=== PATIENT | male | born 1980 | race American Indian/Alaskan Native ===

== ENCOUNTER 2017-03-02 12:06 | Emergency (ER) | payer MEDICAID, SELFPAY ==
[2017-03-02 12:17] VITALS: RESP 20; O2SAT 98
[2017-03-02] MEDS ORDERED: Sodium Chloride 0.9% 1,000 ML IV SCH (12:30)
--- NOTE | 2017-03-02 12:31 | ED PDOC ---
Syncope/Near Syncope/Dizziness Time Seen by Provider: 03/02/17 12:25 Chief Complaint (Nursing): Dizziness/Lightheaded Chief Complaint (Provider): Dizziness History Per: Patient History/Exam Limitations: no limitations Onset/Duration Of Symptoms: Hrs (4) Current Symptoms Are (Timing): Still Present Current Symptoms: None Activity At Onset Of Symptoms: Exertional Activity Associated Symptoms Preceding Syncopal Episode: Lightheadedness Seizure Or Post-ictal Symptoms: None Possible Causative Factor(s): Other [place] temperature) Additional Complaint(s): 36 yo M w/o PMHx presents to ER c/o lightheadedness and dizziness. Pt states this has been ongoing for a few hours, despite drinking bottled water and eating several fruits & vegetables. He had gone for a long run this morning in the very warm/humid environment outdoors. When the symptoms began, he tried lying down in shade in hopes he could sleep it off. He denies any recent LOC, headstrike, trauma, accidents, falls, fevers/chills, nausea or vomiting. He states that he had been fasting for ada over the last couple of weeks, and that it's possible he hasn't had enough fluid during this time. Otherwise, he denies chest pain, SOB, abdominal pain, or other myalgias. - Symptoms Of CVA Associated Symptoms: Other (above are all negative) Recent Head Trauma: No Past Medical History Vital Signs: Last Vital Signs Temp 98 F 03/02/17 12:15 Pulse 80 03/02/17 12:15 Resp 20 03/02/17 12:15 BP 155/70 H 03/02/17 12:15 Pulse Ox 98 03/02/17 12:15 - Family History Family History: States: No Known Family Hx - Allergies Allergies/Adverse Reactions: Allergies Allergy/AdvReac Type Severity Reaction Status Date / Time No Known Allergies Allergy Verified 07/13/14 17:00 Review of Systems ROS Statement: Except As Marked, All Systems Reviewed And Found Negative (see HPI) Physical Exam - Reviewed Nursing Documentation Reviewed: Yes Vital Signs Reviewed: Yes - Physical Exam Appears: Positive for: Non-toxic, No Acute Distress Head Exam: Positive for: ATRAUMATIC, NORMAL INSPECTION, NORMOCEPHALIC Skin: Positive for: Normal Color, Warm, Dry. Negative for: Diaphoresis Eye Exam: Positive for: Normal appearance, EOMI, PERRL Neck: Positive for: Normal, Painless ROM, Supple Cardiovascular/Chest: Positive for: Regular Rate, Rhythm. Negative for: Edema Respiratory: Positive for: Normal Breath Sounds. Negative for: Rhonchi, Wheezing, Respiratory Distress Pulses-Radial (L): 2+ Pulses-Radial (R): 2+ Gastrointestinal/Abdominal: Positive for: Normal Exam, Soft. Negative for: Tenderness Extremity: Positive for: Normal ROM. Negative for: Pedal Edema, Calf Tenderness Neurologic/Psych: Positive for: Alert, eco industrial development consultant II-XII, Oriented - Laboratory Results Result Diagrams: 03/02/17 13:00 03/02/17 13:00 - ECG O2 Sat by Pulse Oximetry: 98 - Progress ED Course And Treament: 36 yo M w/o PMHx presents to ER c/o lightheadedness and dizziness -CBC -BMP -NS 1L x1 Update 1330: -Labs resulted wnl -Pt feeling much improved Update 1400: -To be discharged w instructions to follow up with PMD in 2-3 days -Strongly advised to remain well hydrated, out of the sun, and not to fast for next couple of days Condition: Re-examined, Improved Disposition - Clinical Impression Clinical Impression: Dizziness, Dehydration - Patient ED Disposition Is Patient to be Admitted: No - Disposition Disposition: Routine/Home Disposition Time: 14:00 Condition: STABLE Additional Instructions: Follow up with PMD in 2-3 days Keep well hydrated, drinking 3 L of water during days of such extreme heat Do not fast for next few days Return to ED if symptoms occur again
[2017-03-02 13:43] LABS: MEAN CORPUSCULAR HEMOGLOBIN 29.5 pg (27.0-31.0); MEAN CORPUSCULAR HGB CONC 32.4 g/dL (33.0-37.0); RED CELL DISTRIBUTION WIDTH 12.8 % (11.5-14.5); WHITE BLOOD COUNT 6.1 K/uL (4.8-10.8)
[2017-03-02 13:44] LABS: BLOOD UREA NITROGEN 21 mg/dl (9-20); CALCIUM 8.9 mg/dL (8.4-10.2); CARBON DIOXIDE 25 mmol/L (22-30); CHLORIDE 103 mmol/L (98-107); GFR AFRICAN-AMERICAN > 60; GLUCOSE,RANDOM 93 mg/dL (75-110); POTASSIUM 4.2 MMOL/L (3.6-5.0); SODIUM 140 mmol/l (132-148)
[2017-03-02 14:42] VITALS: BP 126/78; PULSE 78; TEMP 97.6
== END 2017-03-02 14:42 | disposition home or self-care (01) ==
LOC: H.ER 12:06
DX: R42 Dizziness and giddiness (principal); E86.0 Dehydration

== ENCOUNTER 2017-03-08 22:34 | Observation (INO) | payer MEDICAID ==
[2017-03-08] MEDS ORDERED: Sodium Chloride 0.9% 1,000 ML IV STA (23:01)
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
[2017-03-09 00:05] LABS: BASO % 0.4 % (0.0-2.0); EOS # 0.1 K/uL (0.0-0.7); EOS % 1.1 % (0.0-4.0); HEMATOCRIT 35.5 % (35.0-51.0); LYMPH # 1.1 K/uL (1.0-4.3); LYMPH % 15.9 % (20.0-40.0); MEAN CELL VOLUME 91.1 fl (80.0-94.0); MEAN CORPUSCULAR HEMOGLOBIN 29.5 pg (27.0-31.0); MEAN CORPUSCULAR HGB CONC 32.4 g/dL (33.0-37.0); MEAN PLATELET VOLUME 9.4 fl (7.2-11.7); MONO # 0.7 K/uL (0.0-0.8); MONO % 9.2 % (0.0-10.0); NEUT # 5.3 K/uL (1.8-7.0); NEUT % 73.4 % (50.0-75.0); NRBC % 0.1 % (0.0-0.0); RED CELL DISTRIBUTION WIDTH 12.8 % (11.5-14.5); WHITE BLOOD COUNT 7.2 K/uL (4.8-10.8)
[2017-03-09 00:13] LABS: ALB/GLOB RATIO 1.3 (1.0-2.1); ALKALINE PHOSPHATASE 74 U/L (38-126); ALT/SGPT 70 U/L (21-72); AST/SGOT 110 U/L (17-59); BILIRUBIN,TOTAL 0.4 mg/dl (0.2-1.3); BLOOD UREA NITROGEN 15 mg/dl (9-20); CARBON DIOXIDE 27 mmol/L (22-30); CHLORIDE 104 mmol/L (98-107); GFR AFRICAN-AMERICAN > 60; GLUCOSE,RANDOM 83 mg/dL (75-110); SODIUM 140 mmol/l (132-148)
[2017-03-09] MEDS ORDERED: Sodium Chloride 0.9% 50 ML IV ONE (00:44)
[2017-03-09] MEDS ORDERED: Iohexol 300 100 ML IJ ONE (00:44)
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
[2017-03-09 06:15] VITALS: TEMP 97.6
[2017-03-09 06:56] VITALS: BP 124/67; PULSE 81; RESP 18
[2017-03-09] MEDS ORDERED: Divalproex 500 mg ER (ONCE DAILY formulation) PO SCH (09:00)
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
[2017-03-10 10:51] VITALS: O2SAT 97
== END 2017-03-09 15:45 | disposition left against medical advice (07) ==
LOC: H.ER 22:34 → H.ERHOLD 03-09 05:06 → H.MEDSURG1 03-09 06:53
PROVIDERS: ADMIT Internal Medicine; ATTEND Internal Medicine
DX: S27.321A Contusion of lung, unilateral, initial encounter (principal); Y00.XXXA Assault by blunt object, initial encounter; Y92.9 Unspecified place or not applicable; F31.9 Bipolar disorder, unspecified; G40.909 Epilepsy, unspecified, not intractable, without status epilepticus; Z91.018 Allergy to other foods

== ENCOUNTER 2017-03-09 18:10 | Emergency (ER) | payer MEDICAID ==
[2017-03-09 18:20] VITALS: O2SAT 98
[2017-03-09 18:31] VITALS: BP 120/72; RESP 20; TEMP 96.2
[2017-03-09 19:08] VITALS: PULSE 36
--- NOTE | 2017-03-09 19:35 | ED PDOC ---
HPI: SOB/CHF/COPD Time Seen by Provider: 03/09/17 19:00 Chief Complaint (Nursing): Shortness Of Breath Chief Complaint (Provider): CHEST PAIN History Per: Patient (36 Y/O MALE RECENT ELOPEMENT FROM [address] [place] [address] HERE FOR DISCHARGE PAPERWORK. PATIENT WAS ADMITTED FOR PULMONARY CONTUSION AND SEEN BY DR. MOSQUEDA AND SURGERY FOR EVALUATION OF PULMONARY CONTUSION. PATIENT HAD LEFT WITH IV BUT STATES HE REMOVED IT. NOTES PERSISTENT CHEST PAIN.) Past Medical History Reviewed: Historical Data, Nursing Documentation, Vital Signs Vital Signs: Last Vital Signs Temp 96.2 F L 03/09/17 18:30 Pulse 36 L 03/09/17 18:57 Resp 20 03/09/17 18:30 BP 120/72 03/09/17 18:30 Pulse Ox 98 03/09/17 18:30 - Medical History PMH: Seizures Denies: Chronic Kidney Disease - Family History Family History: States: No Known Family Hx - Home Medications Home Medications: Ambulatory Orders Medication Instructions Recorded Benztropine [Cogentin] 0.5 mg PO DAILY 03/09/17 Divalproex [Depakote ER(ONCE 500 mg PO DAILY 03/09/17 DAILY)] Haloperidol [Haldol] 5 mg PO DAILY 03/09/17 Loratadine [Claritin] 10 mg PO DAILY 03/09/17 Naproxen [Naprosyn Tab] 375 mg PO Q8 PRN #21 tab 03/09/17 - Allergies Allergies/Adverse Reactions: Allergies Allergy/AdvReac Type Severity Reaction Status Date / Time apple Allergy RASH Verified 03/08/17 22:36 chicken derived Allergy RASH Verified 03/08/17 22:36 ORANGE Allergy RASH Verified 03/08/17 22:36 Review of Systems ROS Statement: Except As Marked, All Systems Reviewed And Found Negative Cardiovascular: Positive for: Chest Pain Physical Exam - Reviewed Nursing Documentation Reviewed: Yes Vital Signs Reviewed: Yes - Physical Exam Appears: Positive for: Well, Non-toxic, No Acute Distress Head Exam: Positive for: ATRAUMATIC, NORMAL INSPECTION, NORMOCEPHALIC Skin: Positive for: Normal Color, Warm, DRY Eye Exam: Positive for: EOMI, Normal appearance, PERRL ENT: Positive for: Normal ENT Inspection Neck: Positive for: Normal, Painless ROM Cardiovascular/Chest: Positive for: Regular Rate, Rhythm Respiratory: Positive for: CNT, Normal Breath Sounds Gastrointestinal/Abdominal: Positive for: Normal Exam, Bowel Sounds, Soft Back: Positive for: Normal Inspection Extremity: Positive for: Normal ROM Neurologic/Psych: Positive for: Alert, Oriented - ECG O2 Sat by Pulse Oximetry: 98 - Progress ED Course And Treament: D/W DR. SANCHEZ. PULMONARY CONSULTATION AND SURGICAL CONSULTATION NOTED REVIEWED WITH HIM. WILL D/W REVIEW ANALYST REGARDING RECOMMENDATIONS AND D/C FROM ED. D/W DR. BARRIENTOS SURG RESIDENT. PATIENT TO F/U OUTPATIENT FOR REPEAT HGB AND REPEAT CT SCAN IN 2-3 DAYS. Disposition - Clinical Impression Clinical Impression: Pulmonary contusion - Patient ED Disposition Is Patient to be Admitted: No - Disposition Referrals: Zachery Sanchez MD [Staff Provider] - Rony Mcconnell MD [Staff Provider] - Disposition: Routine/Home Disposition Time: 19:36 Condition: FAIR Additional Instructions: FOLLOW UP WITH PMD IN 2-3 DAYS FOR REPEAT HGB AND REPEAT CT SCAN OF CHEST TO EVALUATE PULMONARY CONTUSION. Prescriptions: Naproxen [Naprosyn Tab] 375 mg PO Q8 PRN #21 tab PRN Reason: Pain, Moderate (4-7) Instructions: Pulmonary Contusion (ED) Forms: [facility] [employer] [facility] ([place])
--- NOTE | 2017-03-12 15:25 | CARD ---
APPROVED REPORT EKG Measurement Heart [id number] <Conclusion> Marked sinus bradycardia Minimal voltage criteria for LVH, may be normal variant Nonspecific ST and T wave abnormality Abnormal ECG
== END 2017-03-09 20:00 | disposition home or self-care (01) ==
LOC: H.ER 18:10
DX: S27.329A Contusion of lung, unspecified, initial encounter (principal); W22.8XXA Striking against or struck by other objects, initial encounter; Y92.89 Other specified places as the place of occurrence of the external cause; J44.9 Chronic obstructive pulmonary disease, unspecified